=== PATIENT | female | born 1995 | race Caucasian/White ===

== ENCOUNTER 2017-01-19 22:01 | Emergency (ER) | payer SELFPAY ==
--- NOTE | 2017-01-19 23:05 | NUR ---
PATIENT LEFT WITHOUT BEING SEEN BY DR. CARTER. NO FURTHER CARE PROVIDED FOR PATIENT.
== END 2017-01-19 23:05 | disposition left against medical advice (07) ==
LOC: MED 22:01
DX: R69 Illness, unspecified (principal); Z53.21 Procedure and treatment not carried out due to patient leaving prior to being seen by health care provider

== ENCOUNTER 2020-06-15 06:20 | Emergency (ER) | payer MEDICAID ==
[~2020-06-15] VITALS: Ht 170.2 cm; Wt 93.0 kg
--- NOTE | 2020-06-15 06:20 | NUR ---
PT MAAR BLS. TAKEN TO BED 7
[2020-06-15 06:24] VITALS: BP 134/79
--- NOTE | 2020-06-15 06:35 | NUR ---
PT STATES SHE WOKE UP THIS MORNING AROUND 0540 FEELING VERY ANXIOUS AND FELT LIKE HER HEART WAS BEATING RAPIDLY. SHE TOOK HER BLOOD PRESSURE AND SAID IT WAS ELEVATED WELL SO SHE CALLED 911. PT DENIES ANY SOB, CHEST PAIN, DIZZINESS, OR N/V. PT STATES "I FEEL DEHYDRATED" BUT COULD NOT ELABORATE ON WHAT SYMPTOMS THAT PRESENTED. BED IN LOWEST POSITION AND SIDERAIL UP X 1. NKA HX - ANXIETY, MIGRAINES
--- NOTE | 2020-06-15 06:43 | NUR ---
Dr. Ortega examining patient.
--- NOTE | 2020-06-15 06:52 | NUR ---
Patient discharged with v/s stable. Written and verbal after care instructions given and explained. Patient alert, oriented and verbalized understanding of instructions. with steady gait. All questions addressed prior to discharge. ID band removed. Patient advised to follow up with PMD. Rx of atarax given. Patient educated on indication of medication including possible reaction and side effects. Opportunity to ask questions provided and answered.
[2020-06-15 06:53] VITALS: BP 134/79
== END 2020-06-15 06:52 | disposition home or self-care (01) ==
LOC: MED 06:20
DX: F41.9 Anxiety disorder, unspecified (principal); R00.2 Palpitations; G43.909 Migraine, unspecified, not intractable, without status migrainosus
CPT/HCPCS: 99283